=== PATIENT | female | born 1960 | race Hispanic/Latino ===

== ENCOUNTER 2019-10-25 02:41 | Emergency (ER) | payer BC ==
[2019-10-25 02:53] LABS: BASOPHILS % (AUTO) 0.7 % (0.0-5.0); EOSINOPHILS % (AUTO) 2.1 % (0.0-8.0); HEMATOCRIT 35.6 % (36-48); LYMPHOCYTES % (AUTO) 38.3 % (21.0-51.0); MEAN CORPUSCULAR HEMOGLOBIN 27.9 pg (27.0-33.0); MEAN CORPUSCULAR HGB CONC 32.6 g/dL (32.0-36.0); MEAN CORPUSCULAR VOLUME 85.6 fL (79-99); MONOCYTES % (AUTO) 8.6 % (3.0-13.0); NEUTROPHILS % (AUTO) 50.1 % (40.0-77.0); PLATELET COUNT (AUTO) 398 K/uL (130-400); RED BLOOD CELL COUNT(AUTO) 4.16 MIL/uL (4.00-5.50); RED CELL DISTRIBUTION WIDTH 15.3 % (11.0-15.5); WHITE BLOOD COUNT (AUTO) 8.6 K/uL (4.8-10.8)
[2019-10-25 03:09] LABS: BILIRUBIN,TOTAL 0.4 mg/dL (0.2-1.0); CREATININE 0.9 mg/dL (0.5-1.5); POTASSIUM 3.6 mmol/L (3.5-5.1); TOTAL PROTEIN, SERUM 8.4 g/dL (6.0-8.3)
[2019-10-25] MEDS ORDERED: DiphenhydrAMINE HCL 50 MG/ML VIAL ONE (03:24)
[2019-10-25] MEDS ORDERED: ONDANSETRON HCL 4 MG/2 ML VIAL ONE (03:24)
[2019-10-25 03:46] LABS: THYROID STIMULATING HORMONE 3.23 uIU/mL (0.36-3.74)
[2019-10-25 03:47] LABS: INR 1.09 (0.85-1.15); PARTIAL THROMBOPLASTIN TIME 26.6 SEC (26.3-35.5); PROTHROMBIN TIME 11.4 SEC (9.6-11.6)
[2019-10-25 04:01] LABS: APPEARANCE,URINE Clear (CLEAR); BILIRUBIN,URINE Negative (NEGATIVE); COLOR,URINE Yellow (YELLOW); GLUCOSE, URINE (UA) Negative (NEGATIVE); KETONES,URINE Negative (NEGATIVE); LEUKOCYTE ESTERASE ,URINE Trace (NEGATIVE); NITRATE,URINE Negative (NEGATIVE); OCCULT BLOOD,URINE Negative (NEGATIVE); PROTEIN,URINE Negative (NEGATIVE); UROBILINOGEN,URINE 0.2 mg/dL (0.2-1.0)
[2019-10-25 04:38] LABS: BACTERIA,URINE Moderate /HPF (None Seen); RBC,URINE 0-1 /HPF (0-1); YEAST,URINE BUDDING Moderate /HPF (None Seen)
[2019-10-25] MEDS ORDERED: CEPHALEXIN 500 MG CAPSULE ONE (05:25)
[2019-10-25 05:33] LABS: CREATININE 0.7 mg/dL (0.5-1.5); POTASSIUM 3.7 mmol/L (3.5-5.1)
== END 2019-10-25 06:05 | disposition home or self-care (01) ==
LOC: EDH 02:41 → EDBD 02:41 → EDH 06:05
DX: F41.1 Generalized anxiety disorder (principal); F45.8 Other somatoform disorders; F10.129 Alcohol abuse with intoxication, unspecified; E87.1 Hypo-osmolality and hyponatremia; R82.71 Bacteriuria; I10 Essential (primary) hypertension; Z88.1 Allergy status to other antibiotic agents
CPT/HCPCS: 36415; 71045; 80053; 81001; 82550; 83880; 84443; 84484 ×2; 85025; 85610; 85730; 87804 ×2; 93005; 96361; 96374; 96375; 99285; G0480; J1200; J2405; 80048

== ENCOUNTER 2023-03-06 07:25 | Day surgery (SDC) | payer BC ==
[2023-03-04 09:12] LABS: BASOPHILS % (AUTO) 0.8 % (0.0-5.0); EOSINOPHILS % (AUTO) 2.9 % (0.0-8.0); HEMATOCRIT 39.5 % (36-48); LYMPHOCYTES % (AUTO) 36.8 % (21.0-51.0); MEAN CORPUSCULAR HEMOGLOBIN 32.8 pg (27.0-33.0); MEAN CORPUSCULAR HGB CONC 33.7 g/dL (32.0-36.0); MEAN CORPUSCULAR VOLUME 97.5 fL (79-99); MONOCYTES % (AUTO) 8.8 % (3.0-13.0); NEUTROPHILS % (AUTO) 50.3 % (40.0-77.0); PLATELET COUNT (AUTO) 284 K/uL (130-400); RED BLOOD CELL COUNT(AUTO) 4.05 MIL/uL (4.00-5.50); RED CELL DISTRIBUTION WIDTH 14.9 % (11.0-15.5); WHITE BLOOD COUNT (AUTO) 5.1 K/uL (4.8-10.8)
[2023-03-04 09:29] LABS: CREATININE 0.9 mg/dL (0.5-1.5); POTASSIUM 4.1 mmol/L (3.5-5.1)
[2023-03-04 09:30] VITALS: BP 161/89
[~2023-03-06] VITALS: Ht 165.1 cm; Wt 82.2 kg
[2023-03-06] VITALS (21 sets, daily range): BP systolic 119–195; BP diastolic 76–99
[~2023-03-06 07:25] MED LIST: CLON2TAB21 PO; LORA10TA7 PO; LOSA100T59 PO; MONT-39 PO; SEMA0.253 SQ; SERT-439 PO
[2023-03-06] MEDS ORDERED: LIDOCAINE PF 100MG/5ML (2%) SYRINGE 5ML ONE (07:52)
[2023-03-06] MEDS ORDERED: MIDAZOLAM HCL 1 MG/ML 2ML VIAL ONE (07:52)
[2023-03-06] MEDS ORDERED: PROPOFOL 10 MG/ML 20ML VIAL IV ONE (07:52)
[2023-03-06] MEDS ORDERED: FENTANYL CITRATE PF 50 MCG/1 ML 2ML VIAL ONE (07:52)
[2023-03-06] MEDS ORDERED: LACTATED RINGERS 1000ML 1,000 ML IV ONE (08:08)
[2023-03-06] MEDS ORDERED: DEXAMETHASONE SOD PHOSPHATE 10MG/ML 1ML VIAL ONE (09:39)
[2023-03-06] MEDS ORDERED: ONDANSETRON 4MG INJ ONE (09:39)
[2023-03-06] MEDS ORDERED: KETOROLAC 30MG VIAL (30MG/ML) ONE (10:01)
[2023-03-06] MEDS ORDERED: MEPERIDINE-PF 25 MG/ML SYG ONE ×2 (10:48→10:59)
[2023-03-06] MEDS ORDERED: HYDRALAZINE 20MG/ML VIAL ONE (12:18)
== END 2023-03-06 12:35 | disposition home or self-care (01) ==
LOC: DAH 07:25
PROVIDERS: ATTEND Obstetrics & Gynecology
DX: N95.0 Postmenopausal bleeding (principal); Z20.822 Contact with and (suspected) exposure to COVID-19; N88.2 Stricture and stenosis of cervix uteri; N84.0 Polyp of corpus uteri; F41.9 Anxiety disorder, unspecified; J45.909 Unspecified asthma, uncomplicated; I10 Essential (primary) hypertension; E66.9 Obesity, unspecified; Z98.890 Other specified postprocedural states; Z80.3 Family history of malignant neoplasm of breast; Z98.84 Bariatric surgery status; Z68.30 Body mass index [BMI] 30.0-30.9, adult
CPT/HCPCS: 80048; 85025; 87426; 36415; 52354; 58558; A6260; A4663; J7120 ×2; A4351; A4355; J3010; J1100; J2001; J0360; J2250; J2704; J2405; J1885; J2175 ×2; A4215; A4223; A4222; A4221